=== PATIENT | female | born 1990 | race African-American/Black ===

== ENCOUNTER 2017-01-02 12:56 | Emergency (ER) | payer OTHER ==
[~2017-01-02] VITALS: Ht 152.4 cm; Wt 76.5 kg
[~2017-01-02 12:56] MED LIST: PREN1CHW7 PO
[2017-01-02 12:58] VITALS: BP 115/60; PULSE 111; RESP 18; TEMP 97.9; O2SAT 96
[2017-01-02] MEDS ORDERED: ACET1CAP18 PO (13:32)
[2017-01-02] MEDS ORDERED: AMOX500C PO (13:35)
--- NOTE | 2017-01-02 13:37 | PD ---
HPI Chief Complaint: ENT Complaint Time Seen by Provider: 13:32 Travel History International Travel<30 days: No Contact w/Intl Traveler<30days: No Traveled to known affect area: No History of Present Illness HPI 26-year-old female presents to the emergency Department with complaint of sore throat since yesterday. She is 6 months : Denies abdominal pain, cramping, vaginal discharge, vaginal bleeding; reports the baby is moving and active. Reports subjective fever last night but did not take her temperature and cannot report a MAXIMUM TEMPERATURE. Denies lump in throat, difficulty swallowing, unusual drooling. Denies nasal congestion, ear pain, cough. Has taken Tylenol with minimal relief of symptoms. Was exposed to her little cousin this weekend that was diagnosed and treated for strep throat. No known allergies. No other modifying factors or associated signs and symptoms. PFSH Past Medical History ?: Social History Alcohol Use: No Tobacco Use: No Substance Use: No Allergies-Medications (Allergen,Severity, Reaction): Coded Allergies: No Known Allergies (Unverified , 01/02/17) Reported Meds & Prescriptions Reported Meds & Active Scripts Active Amoxicillin 500 Mg Cap 500 Mg PO BID 10 Days Vitafol Gummies 3.33-0.333-34.8 mg ( Vit W/ Ferric Phospha) 1 Chw Chw 1 Tab PO DAILY Reported Tylenol (Acetaminophen) 325 Mg Cap 325 Mg PO Q6H PRN Review of Systems Except as stated in HPI: all other systems reviewed are Neg Physical Exam Narrative GENERAL: Well-nourished, well-developed patient, in no acute distress; SKIN: Warm and dry. No rash. HEAD: Atraumatic. Normocephalic. EYES: Pupils equal and round at 3 mm with brisk reaction. No scleral icterus. No injection or drainage. PERRLA. ENT: Mucosa pink and dry. Pharynx with 2+ tonsils; with erythema, exudate, and edema. No Uvular edema. No uvular, palatal, or tonsillar deviation. Airway patent. Voice is hoarse. EARS: Bilateral pinnae and external canals appear within normal limits. Bilateral tympanic membranes without erythema, dullness or perforation.. NECK: Trachea midline. Anterior cervical lymphadenopathy and tenderness. CARDIOVASCULAR: Regular rate and rhythm. No murmur appreciated. RESPIRATORY: No accessory muscle use. Clear to auscultation. Breath sounds equal bilaterally. GASTROINTESTINAL: . Abdomen soft, non-tender, nondistended. Hepatic and splenic margins not palpable. Bowel sounds are active 4 quadrants. MUSCULOSKELETAL: No obvious deformities. No clubbing. No cyanosis. No edema. NEUROLOGICAL: Awake and alert. Oriented 3. No obvious cranial nerve deficits. Motor grossly within normal limits. Normal speech. Moves all extremities. PSYCHIATRIC: Appropriate mood and affect; insight and judgment normal. Data Data Last Documented VS Vital Signs Date Time Temp Pulse Resp B/P Pulse Ox O2 Delivery O2 Flow Rate FiO2 01/02/17 12:58 97.9 111 18 115/60 96 Room Air Orders Group A Rapid Strep Screen (01/02/17 13:31) Strep Culture (Group A) (01/02/17 13:40) [facility] Medical Decision Making Medical Screen Exam Complete: Yes Emergency Medical Condition: Yes Medical Record Reviewed: Yes Differential Diagnosis Strep pharyngitis, viral pharyngitis, less likely peritonsillar abscess Narrative Course 26-year-old female with sore throat. 6 months . Patient is afebrile and nontoxic-appearing. Denies lump in throat, unusual drooling, difficulty swallowing. Rapid strep ordered. 1441: Rapid strep negative. Will treat patient with antibiotics for exudative pharyngitis. Discussed viral illness and symptomatic management and patient verbalized understanding and agreement. Instructed patient to follow up with primary care and oven drier tender. Amoxicillin prescribed for home. Patient is medically cleared and stable for discharge. Discussed reasons to return to the emergency department. Instructed patient to follow up with primary care provider. Patient agrees with treatment plan. The patients vital signs are stable and the patient is stable for outpatient follow-up and treatment. Patient discharged home, stable and in no acute distress. Diagnosis Primary Impression: Exudative pharyngitis Referrals: Primary Care Physician Patient Instructions: General Instructions, Pharyngitis (ED) Departure Forms: Tests/Procedures, Work Release Enter return to work date: Jan 04, 2017 Additional Instructions: Take Antibiotics as prescribed and complete full course of antibiotics Tylenol as directed and as needed for sore throat Get plenty of sleep/rest Rest your voice Drink plenty of fluids to prevent dehydration Use warm saltwater gargles to soothe throat pain Use an air humidifier/turn off ceiling fans Use throat lozenges as needed for sore throat Follow-up with your primary care provider Return immediately to the emergency department with worsening of symptoms Med/Other Pt SpecificInfo: Prescription(s) given Scripts Amoxicillin 500 Mg [id number] Mg PO BID 10 Days Ref 0 Prov:Anika Lopez 01/02/17 Disposition: 01 DISCHARGE HOME Condition: Stable Anika Lopez Jan 02, 2017 13:37
[2017-01-21] MEDS ORDERED: ZOFR4TAB PO (09:17)
[2017-02-27] MEDS ORDERED: LANC1MIS74 (13:21)
[2017-02-27] MEDS ORDERED: ONETTES4 (13:21)
[2017-03-12] MEDS ORDERED: TRUE METRIX BLO1 KIT (16:21)
[2017-03-12] MEDS ORDERED: BLOOD GLUCOSE T1 TES (16:21)
[2017-03-12] MEDS ORDERED: [UNRECOGNIZED DRUG - CODE] (16:21)
== END 2017-01-02 15:38 | disposition home or self-care (01) ==
LOC: NEPB 12:56
DX: O98.812 Other maternal infectious and parasitic diseases complicating pregnancy, second trimester (principal); J02.9 Acute pharyngitis, unspecified; Z3A.00 Weeks of gestation of pregnancy not specified
CPT/HCPCS: 87081; 87880; 99283

== ENCOUNTER → 2017-02-26 | Outpatient (CLI) | payer OTHER ==
[~2017-02-26] MED LIST changes: +ACET1CAP18 PO; +BLOOD GLUCOSE T1 TES; +IBUP-232 PO; +LANC1MIS74; +ONETTES4; +SENN1TAB PO; +TRUE METRIX BLO1 KIT; +ZOFR4TAB PO; +[UNRECOGNIZED DRUG - CODE]
== END ==
LOC: CDED 08:21
DX: O24.419 Gestational diabetes mellitus in pregnancy, unspecified control (principal); Z3A.32 32 weeks gestation of pregnancy
CPT/HCPCS: 97802

== ENCOUNTER 2017-04-08 11:08 | Inpatient (IN) | payer OTHER ==
[~2017-04-08] VITALS: Ht 152.4 cm; Wt 79.4 kg
[2017-04-08] VITALS (81 sets, daily range): BP systolic 102–151; BP diastolic 51–116; PULSE 64–148; RESP 1–18; TEMP 97.9–98.6
[~2017-04-08 11:08] MED LIST changes: -IBUP-232 PO; -LANC1MIS74; -ONETTES4; -SENN1TAB PO
[2017-04-08] MEDS ORDERED: LACTATED RINGER'S 1000 ML INJ 1,000 ML IV PRN (12:25)
[2017-04-08] MEDS ORDERED: LIDOCAINE HCL 1% 50 ML VIAL I-DERMAL PRN (12:30)
[2017-04-08] MEDS ORDERED: LIDOCAINE HCL 1% 50 ML VIAL INFIL PRN (12:30)
[2017-04-08] MEDS ORDERED: SODIUM CHLORID 0.9% 500 ML INJ 500 ML IV PRN (12:30)
[2017-04-08] MEDS ORDERED: OXYTOCIN 30 UNITS-500ML PREMIX 500 ML IV ONE (12:30)
[2017-04-08] MEDS ORDERED: MINERAL OIL 10 ML VIAL TOPICAL PRN (12:30)
[2017-04-08] MEDS ORDERED: PENICILLIN G POTASSIUM INJ 5,000,000 UNITS in SODIUM CHLORIDE 0.9% INJ 100 ML IV ONE (12:30)
[2017-04-08] MEDS ORDERED: ONDANSETRON HCL 4 MG/2 ML VIAL IV PRN (12:30)
[2017-04-08] MEDS ORDERED: CITRIC ACID-SODIUM CITRATE LIQ 30 ML UDC PO SCH (12:30)
[2017-04-08] MEDS ORDERED: OXYTOCIN 30 UNITS-500ML PREMIX 500 ML IV SCH (12:30)
[2017-04-08] MEDS ORDERED: SODIUM CHLOR 0.9% 1000 ML INJ 1,000 ML IV PRN (12:45)
[2017-04-08 12:52] LABS: AUTOMATED NEUTROPHIL # 5.8 TH/MM3 (1.8-7.7); BASOPHIL % 0.3 % (0.0-2.0); EOSINOPHIL % 0.3 % (0.0-4.0); HEMATOCRIT 33.4 % (35.0-46.0); HEMO FLAGS DIFF FINAL; LYMPH % 21.9 % (9.0-44.0); LYMPHOCYTE # 1.9 TH/MM3 (1.0-4.8); MEAN CELL VOLUME 87.9 FL (80.0-100.0); MEAN CORPUSCULAR HEMOGLOBIN 30.6 PG (27.0-34.0); MEAN CORPUSCULAR HGB CONC 34.8 % (32.0-36.0); MONO % 9.4 % (0.0-8.0); NEUT % 68.1 % (16.0-70.0); PLATELET COUNT 256 TH/MM3 (150-450); RED CELL DISTRIBUTION WIDTH 12.9 % (11.6-17.2); WHITE BLOOD COUNT 8.5 TH/MM3 (4.0-11.0)
[2017-04-08 13:10] LABS: BACTERIA, URINE RARE /hpf; BLOOD, URINE MOD (NEG); COMMENT (UR) CULT NOT INDICATED; CULTURE IF INDICATED CULT NOT INDICATED; GLUCOSE,URINE NEG (NEG); KETONE, URINE TRACE mg/dL (NEG); MUCUS URINE FEW /lpf (OCC); NITRITE,URINE NEG (NEG); PH, URINE 6.5 (5.0-8.5); SQUAMOUS EPITHELIAL CELL URINE 2 /hpf (0-5); URINE COLOR YELLOW (YELLW/STRAW)
--- NOTE | 2017-04-08 14:00 | HHI.HP ---
HPI Chief Complaint induction of labor Date Seen: Apr 08, 2017 Time Seen: 12:20 (Alejandra Mercedes MD R1) Travel History International Travel<30 Days: No Contact w/Intl Traveler<30Days: No Known Affected Area: No (Alejandra Mercedes MD R1) History of Present Illness HPI Patient is a 26 year old at 40 and 1/7 weeks gestation based on [place] 2015 who presents to the OB as a direct admission for induction of labor. She is a patient at [facility] and has had good care starting at approx 9 weeks. She denies any symptoms; specifically she denies LOF, vaginal bleeding, and feeling contractions. She is feeling baby move actively. he has GDM diagnosed by 1hr and 3hr GTT and has been managed by diet only. Fasting BG in office today was 88. GBS positive. She denies headache, blurred vision, shortness of breath, chest pain, RUQ pain, face/hand swelling, nausea, vomiting. She has not eaten today. Para: 0 : 1 (Alejandra Mercedes MD R1) History Past Medical History Narrative Medical GDM - diet controlled (Alejandra Mercedes MD R1) Obstetric History Obstetric History PNC with CFW starting at approx 9 weeks (Alejandra Mercedes MD R1) Past Surgical History Surgical History: No Previous Surgery (Alejandra Mercedes MD) Family History Family History: Negative (Alejandra Mercedes MD) Social History Alcohol Use: No Tobacco Use: No Substance Abuse: No (Alejandra Mercedes MD) Allergies-Medications (Allergen,Severity, Reaction): Coded Allergies: No Known Allergies (Unverified , 04/08/17) Home Meds Active Scripts Blood Glucose Test Strips 1 Genesis Genesis #120 EA .ROUTE DIRECTED Ref 0 Prov:Marva Owens CNM 03/12/17 Trueplus Lancets 30G 1 Mis Mis #1 BOX .ROUTE DIRECTED Ref 2 Prov:Marva Owens CNM 03/12/17 True Metrix Blood Glucose W/Device 1 Kit Kit #1 KIT .ROUTE DIRECTED Ref 0 Prov:Marva Owens CNM 03/12/17 Discontinued Scripts Ondansetron (Zofran)4 Mg Tab4 Mg PO Q8HR PRN (NAUSEA OR VOMITING) #30 TAB Ref 0 Prov:Chappuis,Ly B. AUDI 01/21/17 Vit W/ Ferric Phospha (Vitafol Gummies 3.33-0.333-34.8 mg)1 Chw Chw1 Tab PO DAILY #30 BOTTLE Ref 11 Prov:Ly aHgen AUDI 12/18/16 Review of Systems Except as stated in HPI: all other systems reviewed are Neg (Alejandra Mercedes MD R1) Physical Exam Vital Signs Date Time Temp Pulse Resp B/P Pulse Ox O2 Delivery O2 Flow Rate FiO2 04/08/17 13:31 76 103/63 04/08/17 13:22 82 106/62 04/08/17 13:01 77 117/78 04/08/17 12:47 95 127/86 04/08/17 12:30 18 Narrative GENERAL: Well-nourished, well-developed patient. SKIN: Warm and dry. HEAD: Normocephalic and atraumatic. EYES: No scleral icterus. No injection or drainage. ENT: No nasal drainage noted. Mucous membranes pink. Airway patent. NECK: Supple, trachea midline. No JVD. CARDIOVASCULAR: Regular rate and rhythm without murmurs, gallops, or rubs. RESPIRATORY: Breath sounds equal bilaterally. No accessory muscle use. ABDOMEN/GI: Abdomen soft, non-tender, bowel sounds present, no rebound, no guarding Gravid to 40 weeks size GENITOURINARY: External Genitalia: intact and normal in appearance Cervix: 4-5/80/-2 Presentation: vertex Membranes: intact Uterine Contractions: irregular approx q6 min at times FHT's: Category: 1 Baseline: 130 Reactive: yes Variability: mod Decels: absent EXTREMITIES: No cyanosis or edema. BACK: Nontender without obvious deformity. No CVA tenderness. NEUROLOGICAL: Awake and alert. Motor and sensory grossly within normal limits. Grossly normal strength. Normal speech. (Alejandra Mercedes MD R1) Data Data Vital Signs Reviewed: Yes (VS reviewed and within normal limits, most recent BP 118/66) Orders Admit To Inpatient (04/08/17 ) Code Status (04/08/17 12:25) Vital Signs (Adult) .Per protocol (04/08/17 12:25) Heart (04/08/17 12:25) Amnioinfusion (04/08/17 12:25) Urinary Catheter Management .ONCE (04/08/17 12:25) Diet Liquid (04/08/17 Lunch) Lactated Ringer's 1000 Ml Inj (Lr 1000 M (04/08/17 12:25) Lactated Ringer's 1000 Ml Inj (Lr 1000 M (04/08/17 12:25) Sodium Chlorid 0.9% 500 Ml Inj (Ns 500 M (04/08/17 12:30) Sodium Chlor 0.9% 1000 Ml Inj (Ns 1000 M (04/08/17 12:45) Lidocaine 1% Inj (50 Ml) (Xylocaine 1% I (04/08/17 12:30) Citric Acid-Sodium Citrate Liq (Bicitra (04/08/17 12:30) Ondansetron Inj (Zofran Inj) (04/08/17 12:30) Fentanyl Inj (Fentanyl Inj) (04/08/17 12:30) Fentanyl Inj (Fentanyl Inj) (04/08/17 12:30) Penicillin G Potassium Inj (Pfizerpen-G (04/08/17 12:30) Penicillin G Potassium Inj (Pfizerpen-G (04/08/17 17:00) Complete Blood Count With Diff (04/08/17 12:25) Hold Clot (04/08/17 12:25) Abo/Rh Blood Type (04/08/17 12:25) Urinalysis - C+S If Indicated (04/08/17 12:25) Resp Oxygen Non Rebreathe Mask (04/08/17 ) ^ Epidural / Intrathecal Infus (04/08/17 12:25) Oxytocin 30 Units-500ml Premix (Pitocin (04/08/17 12:30) Lidocaine 1% Inj (50 Ml) (Xylocaine 1% I (04/08/17 12:30) Light Mineral Oil (Muri-Lube Oil) (04/08/17 12:30) Inpatient Certification (04/08/17 ) Specimen To Be Collected PRN (04/08/17 12:25) ^ Non Stress Test (04/08/17 12:25) Response To Medication .Post New Med Administration, Reaction (04/08/17 12:25) ^ Discontinue Medication (04/08/17 12:25) Oxytocin 30 Units-500ml Premix (Pitocin (04/08/17 12:30) Labs Laboratory Tests Test 04/08/17 11:40 White Blood Count 8.5 Red Blood Count 3.80 Hemoglobin 11.6 Hematocrit 33.4 Mean Corpuscular Volume 87.9 Mean Corpuscular Hemoglobin 30.6 Mean Corpuscular Hemoglobin 34.8 Concent Red Cell Distribution Width 12.9 Platelet Count 256 Mean Platelet Volume 9.7 Neutrophils (%) (Auto) 68.1 Lymphocytes (%) (Auto) 21.9 Monocytes (%) (Auto) 9.4 Eosinophils (%) (Auto) 0.3 Basophils (%) (Auto) 0.3 Neutrophils # (Auto) 5.8 Lymphocytes # (Auto) 1.9 Monocytes # (Auto) 0.8 Eosinophils # (Auto) 0.0 Basophils # (Auto) 0.0 CBC Comment DIFF FINAL Differential Comment Urine Color YELLOW Urine Turbidity HAZY Urine pH 6.5 Urine Specific [place] 1.009 Urine Protein NEG Urine Glucose (UA) NEG Urine Ketones TRACE Urine Occult Blood MOD Urine Nitrite NEG Urine Bilirubin NEG Urine Urobilinogen LESS THAN 2.0 Urine Leukocyte Esterase MOD Urine RBC LESS THAN 1 Urine WBC 1 Urine Squamous Epithelial 2 Cells Urine Bacteria RARE Urine Mucus FEW Microscopic Urinalysis Comment CULT NOT INDICATED Blood Type O POSITIVE Band and Hold HOLD CLOT IN BB (Alejandra Mercedes MD R1) Assessment/Plan Problem List: (1) 40 weeks gestation of (2) Gestational diabetes, diet controlled Assessment and Plan 26 year-old at 40 and 1/7 weeks gestation by first trimester ultrasound who presents for induction of labor. Intrauterine : Category 1 tracing Expect vaginal delivery Membranes intact Pitocin per protocol, 12/06/29 She desires epidural CBC essentially unremarkable. H/H 11.6/33.4 U/A unremarkable IV fluids Monitor heart tones Routine care GBS positive: Start IV penicillin per protocol Gestational diabetes: Diet controlled SHANNON [place] Discharge Planning Anticipate discharge 12 days after vaginal delivery, 2-3 days after delivery if indicated (Alejandra Mercedes MD R1) Attending Attestation The exam, history, and the medical decision-making described in the above note were completed with the assistance of the resident provider. I reviewed and agree with the findings presented. I attest that I had a [id number] encounter with the patient on the same day, and personally performed and documented my assessment and findings in the medical record. (Narendra Kendrick MD) Alejandra Mercedes MD R1 Apr 08, 2017 13:59 Narendra Kendrick MD Apr 08, 2017 14:55
[2017-04-08] MEDS: LACTATED RINGER'S 1000 ML INJ 1,000 ML IV SCH ×2 (14:24→23:40)
--- NOTE | 2017-04-08 16:59 | PD.LABORPN ---
Subjective Subjective Patient reports she is now feeling contractions, mild pain, but not interested in epidural at this time. Still walking around without difficulty. Pitocin at 12mU/min. First dose of PCN started at ~1pm. No new symptoms and no LOF yet Objective Vital Signs Vital Signs Date Time Temp Pulse Resp B/P Pulse Ox O2 Delivery O2 Flow Rate FiO2 04/08/17 16:31 82 111/61 04/08/17 16:08 68 114/72 04/08/17 16:00 17 04/08/17 15:30 73 120/80 04/08/17 15:00 18 04/08/17 15:00 86 118/93 04/08/17 15:00 98.6 04/08/17 14:40 75 122/69 04/08/17 14:00 76 118/68 04/08/17 14:00 18 04/08/17 13:31 76 103/63 04/08/17 13:22 82 106/62 04/08/17 13:01 77 117/78 04/08/17 13:00 18 04/08/17 12:47 95 127/86 04/08/17 12:30 18 Objective Pelvic Exam: Cervix: 6-7/70%/-2 Presentation: vertex Membranes: intact Uterine Contractions: irregular, up to q2min FHT's: Category: 1 Baseline: 140 Reactive: y Variability:mod Decels: absent Assessment/Plan Problem List: (1) 40 weeks gestation of (2) Gestational diabetes, diet controlled Assessment and Plan 26 year-old at 40 and 1/7 weeks gestation by first trimester ultrasound admitted for IOL Intrauterine : Category 1 tracing Expect vaginal delivery Membranes intact Pitocin per protocol, 12/06/29, now at 12miU/min She desires epidural CBC essentially unremarkable. H/H 11.6/33.4 U/A unremarkable IV fluids Monitor heart tones Routine care GBS positive: Start IV penicillin per protocol, first dose 04/08/17 at approx 1pm Gestational diabetes: Diet controlled BSG q2hr SDW Alejandra Alegre MD R1 Apr 08, 2017 16:59
[2017-04-08] MEDS ORDERED: ePHEDrine/NS 25 MG/5 ML SYR ONE (18:44)
[2017-04-08] MEDS ORDERED: fentaNYL 2MCG-BUPIV 0.125% INJ 100 ML ONE (18:44)
[2017-04-08] MEDS ORDERED: ePHEDrine/NS 25 MG/5 ML SYR IV PRN (19:45)
[2017-04-08] MEDS ORDERED: fentaNYL 2MCG-BUPIV 0.125% 100 ML EPIDURAL SCH (19:45)
[2017-04-08] MEDS ORDERED: NO SYSTEM NARCOTICS PRN (19:45)
[2017-04-08] MEDS ORDERED: DO NOT ADMINISTER ANTICOAGULANTS PRN (19:45)
[2017-04-08] MEDS: PENICILLIN G POTASSIUM INJ 2,500,000 UNITS in SODIUM CHLORIDE 0.9% INJ 100 ML IV SCH (22:18)
[2017-04-09] VITALS (124 sets, daily range): BP systolic 96–150; BP diastolic 46–136; PULSE 70–230; RESP 16–18; TEMP 97.5–98.4
[2017-04-09] MEDS: PENICILLIN G POTASSIUM INJ 2,500,000 UNITS in SODIUM CHLORIDE 0.9% INJ 100 ML IV SCH ×2 (02:32→06:36)
--- NOTE | 2017-04-09 08:21 | PD.LABORPN ---
Subjective Subjective Patient continuing to labor, has epidural in place. Active phase at this point. No complaints. On pitocin 18mU/min Objective Vital Signs Vital Signs Date Time Temp Pulse Resp B/P Pulse Ox O2 Delivery O2 Flow Rate FiO2 04/09/17 08:15 91 117/61 04/09/17 08:00 84 109/59 04/09/17 07:46 73 111/55 04/09/17 07:40 91 04/09/17 07:31 86 111/53 04/09/17 07:30 79 04/09/17 07:25 70 04/09/17 07:16 86 132/79 04/09/17 07:05 73 04/09/17 07:00 89 130/93 04/09/17 06:47 95 128/80 04/09/17 06:45 98.2 04/09/17 06:40 102 04/09/17 06:37 18 04/09/17 06:35 91 04/09/17 06:30 95 04/09/17 06:30 93 102/67 04/09/17 06:25 86 04/09/17 06:20 88 04/09/17 06:15 102 18 107/58 04/09/17 06:15 83 04/09/17 06:10 88 04/09/17 06:05 101 04/09/17 06:00 82 04/09/17 06:00 90 101/59 04/09/17 05:55 90 04/09/17 05:50 88 04/09/17 05:46 88 99/59 04/09/17 05:45 88 04/09/17 05:40 79 04/09/17 05:35 101 04/09/17 05:30 91 127/75 04/09/17 05:30 85 04/09/17 05:20 87 04/09/17 05:16 72 111/68 04/09/17 05:15 75 04/09/17 05:07 18 04/09/17 05:05 98 04/09/17 05:01 99 128/46 04/09/17 05:00 98 04/09/17 04:46 94 120/61 04/09/17 04:45 91 04/09/17 04:42 18 04/09/17 04:40 102 04/09/17 04:35 88 04/09/17 04:31 87 111/72 04/09/17 04:30 97 04/09/17 04:16 82 116/69 04/09/17 04:06 18 04/09/17 04:01 119 113/64 04/09/17 04:00 104 04/09/17 03:49 98.2 18 04/09/17 03:46 147 138/95 04/09/17 03:45 129 04/09/17 03:30 97 04/09/17 03:30 106 123/78 04/09/17 03:30 18 04/09/17 03:16 79 120/64 04/09/17 03:15 101 04/09/17 02:46 98 125/76 04/09/17 02:45 100 18 04/09/17 02:40 119 04/09/17 02:35 103 04/09/17 02:30 113 04/09/17 02:30 108 135/79 04/09/17 02:15 87 04/09/17 02:15 94 115/65 04/09/17 02:00 100 04/09/17 02:00 96 109/67 04/09/17 01:59 18 04/09/17 01:50 96 04/09/17 01:46 108 96/73 04/09/17 01:35 106 04/09/17 01:30 124 04/09/17 01:30 123 125/76 04/09/17 01:15 100 04/09/17 01:15 97 115/66 04/09/17 01:13 98.2 04/09/17 01:12 18 04/09/17 01:01 85 127/76 04/09/17 01:00 84 04/09/17 00:50 124 04/09/17 00:45 112 128/84 04/09/17 00:45 101 04/09/17 00:31 99 109/71 04/09/17 00:30 103 18 04/09/17 00:25 105 112/73 04/09/17 00:25 102 Objective Pelvic Exam: Cervix: 9/90%/0 Presentation: vertex Membranes: AROM 6/4 @ 1822 Uterine Contractions: regular q2 min on pitocin 15 FHT's: Category: 1 Baseline: 140 Reactive: y Variability:mod Decels: absent Assessment/Plan Problem List: (1) 40 weeks gestation of (2) Gestational diabetes, diet controlled Assessment and Plan 26 year-old at 40 and 1/7 weeks gestation by first trimester ultrasound admitted for IOL. Now in active phase, progressing adequately. Intrauterine : Category 1 tracing Expect vaginal delivery AROM 04/08 @ 1622 Pitocin per protocol, 12/06/29, now at 18miU/min She desires epidural CBC essentially unremarkable at admission. H/H 11.6/33.4 U/A unremarkable IV fluids Monitor heart tones Routine care GBS positive: Start IV penicillin per protocol, first dose 04/08/17 at approx 1pm Gestational diabetes: Diet controlled BSG q2hr, wnl in 70s SDW Alejandra Ware Dr., MD R1 Apr 09, 2017 08:21
--- NOTE | 2017-04-09 13:40 | PD.OB.DELI ---
Delivery Date: Apr 09, 2017 Anesthesia: Epidural Episiotomy: None Vaginal Delivery: Normal Presentation: Occiput anterior Nuchal Cord: x1 Delayed cord clamping (45 sec): Yes One Minute : 8 Five Minute : 9 Weight: 3695g Placenta: Spontaneous delivery, Intact, 3 vessel cord Laceration: Perineal laceration, 1 deg Additional Information EBL 250cc Delivery performed by Dr. Adal Mercedes R1. Supervised by Dr. Bright and Dr. Simms R2. Baby [place]. Yary Simms MD R2 Apr 09, 2017 13:40
[2017-04-09] MEDS ORDERED: SODIUM CHLORIDE 0.9% FLUSH 10 ML FLUSH IV FLUSH PRN (13:45)
[2017-04-09] MEDS ORDERED: ZOLPIDEM TARTRATE 5 MG TAB PO PRN (13:45)
[2017-04-09] MEDS ORDERED: ONDANSETRON ODT 4 MG TAB PO PRN (13:45)
[2017-04-09] MEDS ORDERED: oxyCODONE/ACETAMINOPHEN 5 MG/325 MG TAB PO PRN (13:45)
[2017-04-09] MEDS ORDERED: WITCH HAZEL 50%/GLYCERIN 12.5% 40 PAD JAR TOPICAL PRN (13:45)
[2017-04-09] MEDS ORDERED: BENZOCAINE 20% TOPICAL SPRAY 60 ML CAN TOPICAL PRN (13:45)
[2017-04-09] MEDS ORDERED: ALUMINUM/MAGNESIUM/SIMETH 30 ML CUP PO PRN (13:45)
[2017-04-09] MEDS ORDERED: ACETAMINOPHEN 325 MG TAB PO PRN (13:45)
[2017-04-09] MEDS: IBUPROFEN 600 MG TAB PO PRN ×2 (13:54→20:31)
--- NOTE | 2017-04-09 13:58 | PD.LABORPN ---
Subjective Subjective The OB attending note Supervised the vaginal delivery of a Ms Castaneda primipara at 40 weeks , delivered on the family medicine intelligence intern she did a good job. Baby delivered over an intact perineum weight 8 lbs. 2 oz. a boy, 8/9 no complications to delivery placenta delivered spontaneously intact no lacerations EBL 100 cc Objective Vital Signs Vital Signs Date Time Temp Pulse Resp B/P Pulse Ox O2 Delivery O2 Flow Rate FiO2 04/09/17 13:48 98.3 18 04/09/17 13:47 124 115/77 04/09/17 12:55 144 18 115/75 04/09/17 11:00 105 116/67 04/09/17 10:46 88 115/65 04/09/17 10:31 169 150/94 04/09/17 09:30 83 112/73 04/09/17 09:30 85 04/09/17 09:25 84 04/09/17 09:20 82 04/09/17 09:15 75 115/62 04/09/17 09:15 74 04/09/17 09:10 73 04/09/17 09:05 74 04/09/17 09:00 73 112/66 04/09/17 08:46 99 101/63 04/09/17 08:35 92 04/09/17 08:30 114 121/84 04/09/17 08:30 123 04/09/17 08:25 90 04/09/17 08:20 100 04/09/17 08:15 91 117/61 04/09/17 08:00 84 109/59 04/09/17 07:46 73 111/55 04/09/17 07:40 91 04/09/17 07:31 86 111/53 04/09/17 07:30 79 04/09/17 07:25 70 04/09/17 07:16 86 132/79 04/09/17 07:05 73 04/09/17 07:00 89 130/93 04/09/17 06:47 95 128/80 04/09/17 06:45 98.2 04/09/17 06:40 102 04/09/17 06:37 18 04/09/17 06:35 91 04/09/17 06:30 95 04/09/17 06:30 93 102/67 04/09/17 06:25 86 04/09/17 06:20 88 04/09/17 06:15 102 18 107/58 04/09/17 06:15 83 04/09/17 06:10 88 04/09/17 06:05 101 04/09/17 06:00 82 04/09/17 06:00 90 101/59 Objective Pelvic Exam: Cervix: [-] Dilatation: [-] Effacement: [-] Station: [-] Presentation: [-] Membranes: [intact or ruptured] Uterine Contractions: [-] FHT's: Category: [-] Baseline: [-] Reactive: [-] Variability: [-] Decels: [-] Assessment/Plan Problem List: (1) 40 weeks gestation of (2) Gestational diabetes, diet controlled Stuart Bright II, MD Apr 09, 2017 13:58
[2017-04-09] MEDS: oxyCODONE/ACETAMINOPHEN 5 MG/325 MG TAB PO PRN ×2 (14:16→20:31)
[2017-04-09] MEDS ORDERED: MEASLES, MUMPS, RUBELLA VACCINE 0.5 ML VIAL SQ ONE (16:00)
[2017-04-09] MEDS ORDERED: DIPHTH/TETANUS/ACEL PERTUSSIS (BOOSTER) 0.5 ML VIAL/PFS IM ONE (16:00)
[2017-04-09] MEDS: DOCUSATE SODIUM 50 MG/SENNA 8.6 MG TAB PO PRN (20:31)
[2017-04-09] MEDS ORDERED: SODIUM CHLORIDE 0.9% FLUSH 10 ML FLUSH IV FLUSH SCH (21:00)
[2017-04-10] MEDS: oxyCODONE/ACETAMINOPHEN 5 MG/325 MG TAB PO PRN ×3 (01:01→21:04)
[2017-04-10] MEDS: IBUPROFEN 600 MG TAB PO PRN ×3 (03:17→16:02)
--- NOTE | 2017-04-10 07:03 | HHI.OB ---
Subjective Post Day: 1 Remarks day # 1. AFVSS overnight. She has had some vaginal pain since delivery, improved with medication. Decreased lochia. Denies dysuria. No breast tenderness. She is feeding the baby via breast and formula. Appetite good. No nausea or vomiting. Ambulating well. Denies calf pain or shortness of breath. Otherwise, she is doing well this morning and has no other concerns. Objective Vitals/I&O Vital Signs Date Time Temp Pulse Resp B/P Pulse Ox O2 Delivery O2 Flow Rate FiO2 04/09/17 20:40 110/71 04/09/17 20:40 98.4 82 18 04/09/17 17:15 76 16 102/62 04/09/17 17:15 97.5 04/09/17 16:45 98.2 04/09/17 16:45 18 04/09/17 16:30 18 04/09/17 16:15 18 04/09/17 16:00 18 04/09/17 15:47 105 130/65 04/09/17 15:45 18 04/09/17 15:31 122 107/67 04/09/17 15:30 18 04/09/17 15:17 103 114/76 04/09/17 15:15 18 04/09/17 15:02 101 126/66 04/09/17 15:00 18 04/09/17 14:46 118 121/82 04/09/17 14:45 18 04/09/17 14:31 101 125/64 04/09/17 14:27 18 04/09/17 14:16 142 114/67 04/09/17 14:15 18 04/09/17 14:01 168 110/66 04/09/17 13:48 98.3 18 04/09/17 13:47 124 115/77 04/09/17 13:31 120 142/72 04/09/17 13:01 150/136 04/09/17 12:55 144 18 115/75 04/09/17 12:15 98 132/83 04/09/17 12:00 108 129/74 04/09/17 11:46 115 114/66 04/09/17 11:31 128 113/90 04/09/17 11:00 105 116/67 04/09/17 10:46 88 115/65 04/09/17 10:31 169 150/94 04/09/17 09:30 83 112/73 04/09/17 09:30 85 04/09/17 09:25 84 04/09/17 09:20 82 04/09/17 09:15 75 115/62 04/09/17 09:15 74 04/09/17 09:10 73 04/09/17 09:05 74 04/09/17 09:00 73 112/66 04/09/17 08:46 99 101/63 04/09/17 08:35 92 04/09/17 08:30 114 121/84 04/09/17 08:30 123 04/09/17 08:25 90 04/09/17 08:20 100 04/09/17 08:15 91 117/61 04/09/17 08:00 84 109/59 04/09/17 07:46 73 111/55 04/09/17 07:40 91 04/09/17 07:31 86 111/53 04/09/17 07:30 79 04/09/17 07:25 70 04/09/17 07:16 86 132/79 04/09/17 07:05 73 Objective Remarks GENERAL: Well-nourished, well-developed female in no apparent distress. Bonding with . CARDIOVASCULAR: Regular rate and rhythm without murmurs, gallops, or rubs. RESPIRATORY: Breath sounds equal bilaterally. No accessory muscle use. Lungs clear to auscultation bilaterally. ABDOMEN/GI: Abdomen soft, non-tender. Fundus: Firm, non-tender at umbilicus. GENITOURINARY: Light to moderate bleeding. EXTREMITIES: No cyanosis or edema, non-tender, without signs of DVT. Medications and IVs Current Medications Medications (Trade) Dose Ordered Sig/Robina Route Start Time Stop Time Status Last Admin (NS Flush) 2 ml BID IV FLUSH 04/09/17 21:00 (NS Flush) 2 ml UNSCH PRN IV FLUSH 04/09/17 13:45 (Tylenol) 650 mg Q4H PRN PO 04/09/17 13:45 (Motrin) 600 mg Q6H PRN PO 04/09/17 13:45 04/10/17 03:17 (Percocet 5-325 Mg) 1 tab Q4H PRN PO 04/09/17 13:45 04/10/17 05:36 (Percocet 5-325 Mg) 2 tab Q4H PRN PO 04/09/17 13:45 04/10/17 01:01 (Americaine 20% Top Spr) 1 spray Q4H PRN TOPICAL 04/09/17 13:45 (Tucks Pads) 1 applic QID PRN TOPICAL 04/09/17 13:45 (Aurora-Colace) 2 tab Q12H PRN PO 04/09/17 13:45 04/09/17 20:31 (Ambien) 5 mg HS PRN PO 04/09/17 13:45 (Mag-Al Plus Susp Liq) 15 ml Q8H PRN PO 04/09/17 13:45 (Zofran Odt) 4 mg Q6H PRN PO 04/09/17 13:45 Assessment/Plan Problem List: (1) 40 weeks gestation of (2) Gestational diabetes, diet controlled Assessment and Plan 26 year-old who is PPD# 1 s/p . -Continue routine care. -Tylenol, Percocet and Motrin PRN pain. -Encouraged OOB. Advised pelvic rest for 6 wks. -Re: ctrl, she is undecided. -Anticipate discharge tomorrow. SHANNON Bright Discharge Planning Anticipate discharge 12 days after vaginal delivery, 2-3 days after delivery if indicated Alejandra Mercedes MD R1 Apr 10, 2017 07:03
[2017-04-10 08:00] VITALS: BP 108/72; PULSE 94; RESP 16; TEMP 98.9
[2017-04-10] MEDS: DOCUSATE SODIUM 50 MG/SENNA 8.6 MG TAB PO PRN (10:03)
[2017-04-10 20:00] VITALS: BP 109/63; PULSE 76; RESP 18; TEMP 97.7; TEMP 97.8; O2SAT 98; O2SAT 99
[2017-04-11] MEDS: IBUPROFEN 600 MG TAB PO PRN ×3 (04:47→16:36)
--- NOTE | 2017-04-11 06:57 | HHI.OB ---
Subjective Post Day: 2 Remarks day # 2. AFVSS overnight. She has had some vaginal pain since delivery, improved with PRN meds. Decreased lochia. Denies dysuria. No breast tenderness. She is feeding the baby via formula. Appetite good. No nausea or vomiting. Ambulating well. Denies calf pain or shortness of breath. Otherwise , she is doing well this morning and has no other concerns. (Alejandra Mercedes MD R1) Objective Vitals/I&O Vital Signs Date Time Temp Pulse Resp B/P Pulse Ox O2 Delivery O2 Flow Rate FiO2 04/10/17 20:00 76 109/63 04/10/17 20:00 97.8 98 04/10/17 20:00 97.7 18 99 04/10/17 08:00 98.9 94 16 04/10/17 08:00 108/72 Objective Remarks GENERAL: Well-nourished, well-developed female in no apparent distress. Bonding with infant. CARDIOVASCULAR: Regular rate and rhythm without murmurs, gallops, or rubs. RESPIRATORY: Breath sounds equal bilaterally. No accessory muscle use. Lungs clear to auscultation bilaterally. ABDOMEN/GI: Abdomen soft, non-tender. Fundus: Firm, non-tender at umbilicus. GENITOURINARY: Light to moderate bleeding. EXTREMITIES: No cyanosis or edema, non-tender, without signs of DVT. Medications and IVs Current Medications Medications (Trade) Dose Ordered Sig/Robina Route Start Time Stop Time Status Last Admin (NS Flush) 2 ml BID IV FLUSH 04/09/17 21:00 (NS Flush) 2 ml UNSCH PRN IV FLUSH 04/09/17 13:45 (Tylenol) 650 mg Q4H PRN PO 04/09/17 13:45 (Motrin) 600 mg Q6H PRN PO 04/09/17 13:45 04/11/17 04:47 (Percocet 5-325 Mg) 1 tab Q4H PRN PO 04/09/17 13:45 04/10/17 05:36 (Percocet 5-325 Mg) 2 tab Q4H PRN PO 04/09/17 13:45 04/10/17 21:04 (Americaine 20% Top Spr) 1 spray Q4H PRN TOPICAL 04/09/17 13:45 (Tucks Pads) 1 applic QID PRN TOPICAL 04/09/17 13:45 (Aurora-Colace) 2 tab Q12H PRN PO 04/09/17 13:45 04/10/17 10:03 (Ambien) 5 mg HS PRN PO 04/09/17 13:45 (Mag-Al Plus Susp Liq) 15 ml Q8H PRN PO 04/09/17 13:45 (Zofran Odt) 4 mg Q6H PRN PO 04/09/17 13:45 (Alejandra Mercedes MD R1) Assessment/Plan Problem List: (1) 40 weeks gestation of (2) Gestational diabetes, diet controlled Assessment and Plan 26 year-old who is PPD# 2 s/p . -Continue routine care. -Tylenol, Percocet and Motrin PRN pain. -Encouraged OOB. Advised pelvic rest for 6 wks. -Re: ctrl, she is considering OCPs but is undecided -Anticipate discharge today DW Dr. Lora Discharge Planning Anticipate discharge today to home (Alejandra Mercedes MD R1) Attestation Patient was seen and examined. Agree with resident's note. (Ginger Lora MD ) Alejandra Mercedes MD R1 Apr 11, 2017 06:57 Ginger Lora MD Apr 16, 2017 11:06
[2017-04-11] MEDS ORDERED: SENN1TAB PO (07:01)
[2017-04-11] MEDS ORDERED: IBUP-232 PO (07:01)
--- NOTE | 2017-04-11 07:02 | HHI.DCPOC ---
Discharge Care Plan Diagnosis: (1) (spontaneous vaginal delivery) Report Symptoms to Your Doctor -Temperature above 100.5 degrees -Redness, of incision or excessive or foul smelling drainage -Unusual pain or calf pain -Increased vaginal bleeding -Painful or difficulty urinating -Feelings of extreme sadness or anxiety after 2 weeks Goals to Promote Your Health * To prevent worsening of your condition and complications * To maintain your health at the optimal level Directions to Meet Your Goals Take your medications as prescribed Follow your dietary instruction Follow activity as directed Ensure plenty of rest for recovery Drink fluids for hydration Keep your appointments as scheduled Take your immunizations and boosters as scheduled If your symptoms worsen call your PCP, if no PCP go to Urgent Care Center or Emergency Room Smoking is Dangerous to Your Health. Avoid second hand smoke Call the 24-hour crisis hotline for domestic abuse at Yary Simms MD R2 Apr 11, 2017 07:02 Ginger Lora MD Apr 11, 2017 09:24
[2017-04-11 07:27] VITALS: BP 122/78; PULSE 88; RESP 18; TEMP 98.7
[2017-04-11] MEDS: oxyCODONE/ACETAMINOPHEN 5 MG/325 MG TAB PO PRN ×2 (11:00→16:36)
== END 2017-04-11 17:21 | disposition home or self-care (01) | DRG 775 ==
LOC: H2EA 11:08 → H1EA 04-09 17:12
PROVIDERS: ADMIT Obstetrics & Gynecology; ATTEND Obstetrics & Gynecology
PROC: 10E0XZZ Delivery of Products of Conception, External Approach (ICD-10-PCS; principal; 2017-04-08)
PROC: 3E0R3CZ (ICD-10-PCS; 2017-04-08)
PROC: 00HU33Z Insertion of Infusion Device into Spinal Canal, Percutaneous Approach (ICD-10-PCS; 2017-04-08)
PROC: 0HQ9XZZ Repair Perineum Skin, External Approach (ICD-10-PCS; 2017-04-08)
DX: O24.420 Gestational diabetes mellitus in childbirth, diet controlled (principal); O99.824 Streptococcus B carrier state complicating childbirth; Z37.0 Single live birth; O69.81X0 Labor and delivery complicated by cord around neck, without compression, not applicable or unspecified; Z3A.40 40 weeks gestation of pregnancy; O70.0 First degree perineal laceration during delivery
CPT/HCPCS: 59025; 81001; 82948; 85025; 86900; 86901; J2405; J2540; J2590; J7120